=== PATIENT | male | born 1960 | race Two or more races ===

== ENCOUNTER → 2024-08-25 09:20 | Outpatient (REF) | payer OTHER, SELFPAY ==
[2024-08-25 10:00] LABS: % Basophils 0.8 % (0-2); % Eosinophils 6.8 % (0-6); % Immature Granulocytes 0.2 % (0-0.5); % Lymphocytes 21.2 % (20.5-51.1); % Monocytes 7.3 % (1.7-9.3); % Neutrophils 63.7 % (42.2-75.2); Absolute Eosinophils 0.4 10^3/uL (0-0.7); Absolute Lymphocytes 1.1 10^3/uL (1.2-3.4); Absolute Monocytes 0.4 10^3/uL (0.1-0.6); Absolute Neutrophils 3.4 10^3/uL (1.4-6.5); Hematocrit 25.6 % (39.0-52.0); Hemoglobin 8.4 g/dL (13.0-18.0); Mean Corp Hgb Conc. 32.8 g/dL (33.0-37.0); Mean Corpuscular Hgb 29.8 pg (27.0-31.0); Mean Corpuscular Volume 90.8 fL (80.0-94.0); Mean Platelet Volume 11.4 fL (7.4-10.4); Nucleated Red Blood Cells % 0 % (-); Platelet Count 114 10^3/uL (130-400); Red Blood Cell Count 2.82 10^6/uL (4.70-6.10); Red Cell Dist. Width 14.3 % (11.5-14.5); White Blood Cell Count 5.3 10^3/uL (4.8-10.8)
[2024-08-25 10:09] VITALS: BP 154/65; BP_SYST 68
[2024-08-25 10:15] LABS: INR 0.98; PT 13.3 Sec (11.4-14.6)
[2024-08-25] MEDS: NSS (PRESERVATIVE FREE) 0.25 ML IV (10:19)
[2024-08-25] MEDS: ATIVAN 0.5 MG IV (10:19)
[2024-08-25 11:05] VITALS: BP 134/65; BP_SYST 56
[2024-08-25 11:10] VITALS: BP 133/65; BP_SYST 55
[2024-08-25 11:14] LABS: Glucose - Point of Care 109 mg/dl (70-99)
[2024-08-25 11:15] VITALS: BP 133/63; BP_SYST 55
== END ==
LOC: RADI 09:20
PROVIDERS: ATTENDING PHYSICIAN Internal Medicine Hematology & Oncology
DX: N18.4 Chronic kidney disease, stage 4 (severe) (principal); D63.1 Anemia in chronic kidney disease; Z01.812 Encounter for preprocedural laboratory examination; Z01.818 Encounter for other preprocedural examination
CPT/HCPCS: 88305; 88311; 88312; 36415; 38222; 77012; 82962; 85025; 85610; 88313